=== PATIENT | male | born 1990 | race Caucasian/White ===

== ENCOUNTER → 2021-08-09 | Day surgery (SDC) | payer OTHER ==
[~2021-08-09] VITALS: Ht 200.6 cm; Wt 113.4 kg
[~2021-08-09] MED LIST: CARAFATE1 G1 PO; CATAFLAM50 MG PO; FLOMAX0.4 MG PO; HYDROCODONE BIT1 T11 PO; MOTRIN800 MG PO; NKHM; NORFLEX100 MG PO; PROTONIX40 MG PO; ZOFRAN ODT4 MG SL
[2021-08-09 10:08] VITALS: BP 120/75
[2021-08-09 11:00] VITALS: BP 96/58
[2021-08-09 11:13] VITALS: BP 93/57
[2021-08-09 11:30] VITALS: BP 95/58
== END | disposition home or self-care (01) ==
LOC: SDC 08-06 11:00
PROVIDERS: ATTEND Surgery
DX: R13.10 Dysphagia, unspecified (principal); K29.50 Unspecified chronic gastritis without bleeding; K21.00 Gastro-esophageal reflux disease with esophagitis, without bleeding; Z79.899 Other long term (current) drug therapy; Z20.822 Contact with and (suspected) exposure to COVID-19